=== PATIENT | female | born 1950 | race Caucasian/White ===

== ENCOUNTER 2022-06-23 08:17 | Inpatient (IN) ==
--- NOTE | 2022-06-17 16:15 | EKG ---
[facility] Test Date: 2022-06-17 Pat Name: Marsha Cheatham Department: [facility] Room: Gender: Female Preventive Medicine Specialist: : [id number] Requested By: Micheal Riley Order Number: [id number] Reading MD: Mathew Cole M.D. Measurements Intervals [place] Rate: 64 P: 123 NH: 105 QRS: 44 QRSD: 94 T: 21 QT: 422 QTc: 435 Interpretive Statements Sinus rhythm Short NH interval Electronically Signed On 06-17-2022 16:14:58 PST by Mathew Cole M.D. /[email or web address]/[id number]
[2022-06-17 17:05] LABS: INR 2.6 (0.9-1.1); Partial Thromboplastin Time 41.8 sec (20.0-37.0); Prothrombin Time 28.4 sec (11.9-14.5)
[2022-06-17 17:06] LABS: Appearance,Urine CLEAR (Clear); Bilirubin,Urine NEGATIVE (Negative); Color,Urine LT. YELLOW; Culture Indicated,Urine No; Glucose,Urine (UA) NEGATIVE (Negative); Ketones,Urine NEGATIVE (Negative); Leukocyte Esterase,Urine NEGATIVE /uL (Negative); Nitrate,Urine NEGATIVE (Negative); Protein,Urine NEGATIVE (Negative); Urine Blood NEGATIVE ery/mcL (Negative); Urobilinogen,Urine Normal
[2022-06-17 17:14] LABS: Basophils # (Auto) 0.02 K/mcL (0.00-0.30); Basophils % (Auto) 0.4 % (0.0-2.0); Eosinophils # (Auto) 0.01 K/mcL (0.00-0.70); Eosinophils % (Auto) 0.2 % (0.0-7.0); Hematocrit 41.1 % (34.1-44.9); Hemoglobin 13.3 g/dL (11.2-15.7); Lymphocytes # (Auto) 1.55 K/mcL (1.50-4.80); Lymphocytes % (Auto) 30.9 % (15.5-49.0); Mean Cell Volume 105.1 fL (80.0-100.0); Mean Corpuscular HGB Conc 32.4 g/dL (31.0-36.0); Mean Platelet Volume 10.9 fL (8.8-12.5); Monocytes # (Auto) 0.41 K/mcL (0.10-0.90); Monocytes % (Auto) 8.2 % (1.0-12.0); Neutrophils % (Auto) 60.1 % (38.0-78.0); Platelet Count 211 K/mcL (140-440); RBC 3.91 M/mcL (3.59-5.38); Red Cell Distribution Width 12.7 % (11.5-14.5)
[2022-06-17 17:36] LABS: Blood Urea Nitrogen 16 mg/dL (8-23); Calcium 9.7 mg/dL (8.6-10.4); Carbon Dioxide 31 mmol/L (22-30); Chloride 100 mmol/L (96-108); Glomerular Filtration Rate 74; Glucose 80 mg/dL (70-105)
[~2022-06-23 08:17] MED LIST: 0.9 % SODIUM CHLORIDE 9 ML, KETOROLAC 30 MG, ROPIVACAINE HCL/PF 49.5 ML, EPINEPHrine 0.... IJ SCH; ACETAMINOPHEN 500 MG TABLET PO SCH; CELECOXIB 200 MG CAPSULE PO SCH; PREGABALIN 75 MG CAPSULE PO SCH; ceFAZolin 2 GM in DEXTROSE 5% IN WATER 50 ML IV SCH; oxyCODONE 10 MG TAB.ER.12H PO SCH
[2022-06-23] MEDS ORDERED: IOPAMIDOL 100 ML BOTTLE IV ONE (08:18)
[2022-06-23] MEDS ORDERED: MIDAZOLAM 2 MG/2 ML VIAL ONE (10:06)
[2022-06-23] MEDS ORDERED: BUPIVACAINE W/EPI 0.5% 50 ML VIAL IJ ONE (10:06)
[2022-06-23] MEDS ORDERED: BUPRENORPHINE HCL 0.3 MG/ML ML ONE (10:06)
[2022-06-23] MEDS ORDERED: DEXAMETHASONE 10 MG/ML VIAL ONE (10:06)
[2022-06-23] MEDS ORDERED: TRANEXAMIC ACID 1,000 MG/10 ML VIAL ONE (10:06)
[2022-06-23] MEDS ORDERED: PROPOFOL 200 MG/20 ML VIAL IV ONE (10:06)
[2022-06-23] MEDS ORDERED: LIDOCAINE HCL/PF 100 MG/5 ML SYRINGE IV ONE (10:06)
[2022-06-23] MEDS ORDERED: GLYCOPYRROLATE 0.2 MG/ML VIAL IV ONE (10:06)
[2022-06-23] MEDS ORDERED: PHENYLephrine 1 MG/10 ML SYRINGE (ANEST) ONE (10:06)
[2022-06-23] MEDS ORDERED: ePHEDrine 50 MG/5 ML SYRINGE (ANEST) IV ONE (10:06)
[2022-06-23 10:24] LABS: POC INR 1.3 (0.8-1.2); POC Pro Time 15.4 (11.9-14.5)
[2022-06-23] MEDS ORDERED: MEPERIDINE 25 MG/ML VIAL IV PRN (10:43)
[2022-06-23] MEDS ORDERED: IPRATROPIUM/ALBUTEROL 3 ML AMPUL.NEB NEB PRN (10:43)
[2022-06-23] MEDS ORDERED: ONDANSETRON 4 MG/2 ML VIAL IV PRN ×2 (10:43→11:22)
[2022-06-23] MEDS ORDERED: fentaNYL 100 MCG/2 ML VIAL IV PRN (10:43)
[2022-06-23] MEDS ORDERED: ACETAMINOPHEN 325 MG TABLET PO PRN ×2 (11:22→15:00)
[2022-06-23] MEDS ORDERED: BISACODYL 10 MG SUPP.RECT PR PRN (11:22)
[2022-06-23] MEDS ORDERED: TEMAZEPAM 15 MG CAPSULE PO PRN (11:22)
[2022-06-23] MEDS ORDERED: MAGNESIUM HYDROXIDE 30 ML ORAL.SUSP PO PRN (11:22)
[2022-06-23] MEDS ORDERED: FLEETS ADULT ENEMA PR PRN (11:22)
[2022-06-23] MEDS ORDERED: HYDROmorphone 1 MG/ML SYRINGE IV PRN (11:22)
[2022-06-23] MEDS ORDERED: POLYETHYLENE GLYCOL 3350 17 GM PACKET PO PRN (11:22)
[2022-06-23] MEDS ORDERED: TRANEXAMIC ACID 1,000 MG/10 ML VIAL IV ONE (11:22)
--- NOTE | 2022-06-23 11:22 | Brief Operative Note ---
Brief Operative Note Date of procedure: 06/23/22 Pre-op diagnosis: right knee djd Post-op diagnosis: same Procedure: right tka Grafts/Implants: Yes Anesthesia: GETA Findings: severe djd Complications: none Surgeon: Kwan Barkley Drying Rack Changer: Chevy Wolf Estimated blood loss (cc): 40 Tourniquet Time (Minutes): 41 Specimens Removed/Pathology: none sent Condition: stable Disposition: PACU
--- NOTE | 2022-06-23 11:36 | Discharge Plan ---
Discharge Instructions - TKA Patient Instructions Total Knee Protocol: For Total Knee: Start ROM LAKESHA with stationary bike or rocking chair. Work on gaining full extension of knee. Posterior dislocation precautions provided. Hip abductor strengthening and gait training instructions provided. Apply Cryocuff as instructed. Additional Dressing Instructions: Leave Zip line closure patch intact until followup --May shower at anytime. Discharge Plan Patient/Caregiver Discharge Instructions Activity: ambulate only with your walker and as per physical therapy Diet: Regular Diet Prescriptions: New docusate sodium 100 mg capsule 100 mg PO BID Qty: 60 0RF hydrocodone-acetaminophen 10-325 mg tablet 1 - 2 tab PO Q4H PRN (Reason: pain) Qty: 75 0RF aspirin [Ecotrin Low Strength] 81 mg tablet,delayed release (DR/EC) 81 mg PO BID Qty: 60 0RF No Action hydroxychloroquine 200 mg tablet 200 mg PO BID warfarin 5 mg tablet 0 mg PO QDAY Rx Instructions: 7.5mg on mwf, 5mg all other days lovastatin 40 mg tablet 40 mg PO HS lisinopril 20 mg tablet 20 mg PO QDAY diltiazem HCl 240 mg capsule,extended release 24hr 240 mg PO QDAY carbamazepine 200 mg tablet extended release 12 hr 200 mg PO BID Rx Instructions: 1 tab by mouth in the morning and 1 tabs at night valacyclovir 1 gram tablet 0 mg PO ONCE PRN (Reason: Cold Sores) Rx Instructions: directions say as directed. previous directions said: 2 tabs by mouth at onset of cold sore, and again 12 hours later Calcium-Plus Tablet 1 tab PO DAILY Rx Instructions: CALCIUM + D ferrous sulfate [iron] 325 mg (65 mg iron) Tablet 325 mg PO QDAY vitamin B complex Tablet 1 tab PO QDAY vitamin E 100 unit Tablet,Chewable 180 unit PO DAILY magnesium [magnesium gluconate] 200 mg Tablet 250 mg PO QDAY glucosamine-chondroitin [Osteo Bi-Flex] 250-200 mg Tablet 2 tab PO HS Rx Instructions: give after food/meal omega 0-sjy-iza-fish oil [Fish Oil] 1,000 mg (120 mg-180 mg) Capsule 1 cap PO QDAY Tart Holcomb Extract 1,000 mg Capsule 1,200 mg PO QAM cholecalciferol (vitamin D3) 50 mcg (2,000 unit) Tablet,Chewable 50 mcg PO QDAY turmeric 400 mg Capsule 400 mg PO DAILY Other Ambulatory Orders: Physical Therapy DC - TKA (Routine) Location: None Selected Ordered By: Chevy Wolf Toilet Riser Discharge Order (ONCE) Location: None Selected Ordered By: Chevy Wolf Walker (ONCE) Location: None Selected Ordered By: Chevy Wolf Follow Up Plan Follow up with: Kwan Barkley MD [Physician] - 07/08/22 10:40 am Chevy Wolf PA-C [Physician Counselor Marriage And Family] - Patient Disposition: Home, Self-Care Prognosis: Good Rehab Potential: Good I certify that the patient requires SNF services: No Overall status at discharge: patient is progressing back to baseline Discharge Orders: Discharge Order (Routine); Ordered 06/24/22 Ordered By: Chevy Wolf
[2022-06-23] MEDS ORDERED: valACYclovir 1,000 MG TABLET PO PRN (11:42)
--- NOTE | 2022-06-23 13:03 | XRay Report ---
CLINICAL INFORMATION: Post-Op Total Knee COMPARISON: None. FINDINGS: Total knee prostheses is anatomically aligned. No osseous abnormalities. Periarticular soft tissue swelling seen as expected. IMPRESSION: Knee prostheses in anatomic alignment Interpreted and Authenticated by: Mathew Mccoy 06/23/22
--- NOTE | 2022-06-23 15:01 | Operative Note ---
DATE OF OPERATION: 06/23/2022 PREOPERATIVE DIAGNOSIS: Right knee degenerative arthritis. POSTOPERATIVE DIAGNOSIS: Right knee degenerative arthritis. PROCEDURE: Right total knee arthroplasty. SURGEON: Kwan Barkley M.D. WOOD HEEL FINISHER: Chevy Wolf PA-C. The PA's assistance was required for the safe and efficient completion of the entire case. This provider's expertise and technical skill were required throughout the case. The PA assisted with preoperative coordination, intraoperative retraction, wound closure, dressing and splint application, as well as postoperative documentation and care coordination. IMPLANTS: [place] components. ANESTHESIA: General endotracheal anesthesia. FINDINGS: Severe arthritis. COMPLICATIONS: None. ESTIMATED BLOOD LOSS: 40 mL. TOURNIQUET TIME: 41 minutes. SPECIMENS SENT: None. CONDITION: Stable. DISPOSITION: PACU. DESCRIPTION OF PROCEDURE: The patient was brought to the operating room, put to sleep on the table with general LMA anesthesia. The right leg was sterilely prepped and confirmed as the operative site by initials, consent form, and x-rays. Tourniquet was inflated to 250 pounds of pressure. We made a midline incision, midvastus approach was performed. This showed severe arthritis. We then placed two arrays above the tibial tubercle and two mid tibia. We registered center of hip rotation, registered medial and lateral malleoli, registered forty points on the femur and tibia, and then balanced the knee at 15 and 90 degrees of flexion. Because of the poor bone quality, we decided to cement her knee. We brought in the robot and made the bony cuts and removed all spurs. Balancing the knee, we then used the Verasense to help register the pressures throughout the arc of motion. Once the bony cuts had been made, we then placed the trial components. Once we were able to get the patient into acceptable limits on the pressures, we then prepared the patella. It measured 23 mm of total thickness. This was cut to 13 mm and we placed a 29 mm oval patella. This was a cementless patella. It was cemented into place as well as the tibia and the femoral component. Any excess cement was removed. We then used a deep dish poly. The thickness, I believe, was 13. Please refer to nurse's note. We deflated the tourniquet at 41 minutes. Blood loss was about 40 mL. There was no complication. We controlled any bleeding. The pin sites were removed, both medial epicondyle area and the checkpoint, medial mid tibia arrays were removed with checkpoints all accounted for. After these had been removed, we then took the knee through the range of motion after the cement had dried, checking for any impingement. We had removed any posterior spurs and balanced the knee perfectly. The Verasense was used to help balance the soft tissues. She was a varus malaligned knee, and with this we were able to then slightly release the spurs as well as some of the soft tissue medially and perfectly balance the knee throughout the full arc of motion within the acceptable 30 to 40 mmHg pressure, symmetric bilaterally with good excursion. There was no liftoff of the components. The components were finally cemented into place. Any excess cement was removed. We kept the knee at 45 degrees until the cement was removed and then took it back through the arc of motion to test the ligaments and the tracking of the patella. Midvastus approach was closed after thorough irrigation and then skin was closed with Stratafix and adhesive closure. The patient tolerated this well without complication. RBH:ko Job ID: [id number] Doc ID: [id number] Kwan Barkley MD
[2022-06-23] MEDS: 0.9 % SODIUM CHLORIDE 10 ML SYRINGE IV SCH ×2 (18:43→20:00)
[2022-06-23] MEDS: WARFARIN 7.5 MG TABLET PO SCH (18:45)
[2022-06-23] MEDS: ceFAZolin 1 GM VIAL IV SCH (18:55)
[2022-06-23] MEDS: 0.45 % SODIUM CHLORIDE 1,000 ML IV SCH ×2 (18:55→20:37)
[2022-06-23] MEDS: ASPIRIN 81 MG TAB.CHEW PO SCH (20:35)
[2022-06-23] MEDS: SENNOSIDES 1 TABLET PO SCH (20:36)
[2022-06-23] MEDS: HYDROXYCHLOROQUINE 200 MG TABLET PO SCH (20:36)
[2022-06-23] MEDS: carBAMazepine 200 MG TAB.SR.12H PO SCH (20:36)
[2022-06-23] MEDS: DOCUSATE SODIUM 100 MG CAPSULE PO SCH (20:36)
[2022-06-23] MEDS: GLUCOSAMINE/CHONDROITIN SULF A 1 CAP CAPSULE PO SCH (20:36)
[2022-06-23] MEDS: HYDROcodone/APAP 10/325MG TABLET PO PRN (22:07)
[2022-06-24] MEDS: 0.45 % SODIUM CHLORIDE 1,000 ML IV SCH ×2 (00:16→11:18)
[2022-06-24] MEDS: ceFAZolin 1 GM VIAL IV SCH (02:06)
--- NOTE | 2022-06-24 02:18 | XRay Report ---
CLINICAL INFORMATION: Shortness of breath and cough COMPARISON: None. TECHNIQUE: Portable FINDINGS: The heart is mildly enlarged. Mediastinum and pulmonary vessels are normal. Small consolidated infiltrate is seen in the left medial base (retrocardiac region). Minor right basilar atelectasis noted. No effusion. IMPRESSION: Small consolidated infiltrate left medial base Interpreted and Authenticated by: Mathew Mccoy 06/24/22
[2022-06-24] MEDS: 0.9 % SODIUM CHLORIDE 10 ML SYRINGE IV SCH ×3 (04:15→21:16)
[2022-06-24 07:16] LABS: INR 1.1 (0.9-1.1); Prothrombin Time 14.1 sec (11.9-14.5)
--- NOTE | 2022-06-24 07:43 | Orthopedic Progress Note ---
SUBJECTIVE Subjective Patient information: Note initiated : 06/24/22 at 7:41 am Service Date, if different from initiated Date: [] Patient: SeptemberMarsha a 72 y/o F admitted on for Right Total Knee Arthroplasty . Chief Complaint: [Pt is stable this morning on post operative day without any significant concerns or complaints. Patients vital signs have remained stable. Patients dressing is dry and is grossly intact from a neurovascular and motor standpoint. Patients 10 point ROS is otherwise negative. ] Constitutional Vitals: Vital Signs Temp Pulse Resp BP Pulse Ox O2 Del Method O2 Flow Rate 98.3 F 98 H 18 138/81 100 Nasal Cannula 2 06/24/22 07:18 06/24/22 07:18 06/24/22 07:18 06/24/22 07:18 06/24/22 07:18 06/24/22 07:18 06/24/22 07:18 Period Temp Pulse Resp BP Sys/White Pulse Ox O2 Del Method O2 Flow Rate Last 24 Hr 97 F-98.8 F 66-98 13-22 100-156/53-81 90-100 Nasal Cannula- Simple Mask 2-6 Intake and Output 06/23/22 06/24/22 06/24/22 19:59 03:59 11:59 Intake Total 400 1200 Output Total 2100 1000 Balance -1700 1200 -1000 Weight 134 lb 4.8 oz Intake & Output: Intake & Output 06/23/22 06/24/22 06/24/22 19:59 03:59 11:59 Intake Total 400 1200 Output Total 2100 1000 Balance -1700 1200 -1000 Weight 134 lb 4.8 oz Intake: IV 1000 Sodium Chloride 0.45% 1,000 ml 1000 @ 100 mls/hr IV .Q10H [facility] Rx#: [id number] Oral 200 IV - Manual Only 400 Output: Urine Catheter Amount 2100 1000 Straight 600 1000 Other: Meal Dinner Percent of Meal Consumed 50% Feeding Ability Assist with Tray Set Up Urine Appearance Clear Straight Clear Urine Color Yellow Straight Yellow Urine Odor Normal Straight Normal Extremities Exam Extremities exam: Present normal capillary refill, normal inspection, Foot pink and warm and neurovascular intact OBJ DATA Labs 06/24/22 05:30 06/17/22 14:26 Labs: Abnormal Lab Results 06/24/22 06/23/22 05:30 09:04 Hct 32.9 L POC PT 15.4 H POC INR 1.3 H Meds: Medications Acetaminophen (Acetaminophen 325 Mg Tablet) 650 mg PO Q6HP PRN; Protocol PRN Reason: Per Pain Protocol/Fever > 101 Hydrocodone Bitart/Acetaminophen (Hydrocodone/Apap 10/325mg Tablet) 1 - 2 tab PO Q4HP PRN; Protocol PRN Reason: Per Pain Protocol Last Admin: 06/23/22 22:07 Dose: 1 tab Aspirin (Aspirin 81 Mg Tab.Chew) 81 mg PO BID [facility] Last Admin: 06/23/22 20:35 Dose: 81 mg Bisacodyl (Bisacodyl 10 Mg Supp.Rect) 10 mg MT Q2-3DAYS PRN PRN Reason: Constipation Carbamazepine (Carbamazepine 200 Mg Tab.Sr.12h) 200 mg PO BID [facility] Last Admin: 06/23/22 20:36 Dose: 200 mg Diltiazem HCl (Diltiazem 240 Mg Cap.Xl.24h) 240 mg PO QDAY [facility] Docusate Sodium (Docusate Sodium 100 Mg Capsule) 100 mg PO BID [facility] Last Admin: 06/23/22 20:36 Dose: 100 mg Fish Oil (Fish Oil 1,000 Mg Capsule) 1,000 mg PO QDAY [facility] Glucosamine/Chondroitin (Glucosamine/Chondroitin Sulf A 1 Cap Capsule) 2 cap PO [facility] Last Admin: 06/23/22 20:36 Dose: Not Given Hydromorphone HCl (Hydromorphone 1 Mg/Ml Syringe) 0.5 - 2 mg IV Q2HP PRN; Protocol PRN Reason: Per Pain Protocol Hydroxychloroquine Sulfate (Hydroxychloroquine 200 Mg Tablet) 200 mg PO BID [facility] Last Admin: 06/23/22 20:36 Dose: 200 mg Sodium Chloride (Sodium Chloride 0.45%) 1,000 mls @ 100 mls/hr IV .Q10H [facility] Last Admin: 06/24/22 00:16 Dose: 100 mls/hr Lisinopril (Lisinopril 20 Mg Tablet) 20 mg PO QDAY [facility] Magnesium Hydroxide (Magnesium Hydroxide 30 Ml Oral.Susp) 30 ml PO BIDP PRN PRN Reason: Constipation Magnesium Oxide (Magnesium Oxide 400 Mg Tablet) 200 mg PO QDAY [facility] Ondansetron HCl (Ondansetron 4 Mg/2 Ml Vial) 4 mg IV Q4HP PRN PRN Reason: Nausea And Vomiting Lovastatin 40 Mg (Tablet) 1 dose PO HS [facility] Last Admin: 06/23/22 20:36 Dose: Not Given Polyethylene Glycol (Polyethylene Glycol 3350 17 Gm Packet) 17 gm PO DAILYP PRN PRN Reason: Constipation Senna (Sennosides 1 Tablet) 2 tab PO [facility] Last Admin: 06/23/22 20:36 Dose: 2 tab Sodium Biphosphate/Sodium Phosphate (Fleets Adult Enema) 1 dose MT Q3-4DAYS PRN PRN Reason: Constipation Sodium Chloride (0.9 % Sodium Chloride 10 Ml Syringe) 10 ml IV Q8 [facility] Last Admin: 06/24/22 04:15 Dose: Not Given Temazepam (Temazepam 15 Mg Capsule) 15 mg PO HSP PRN PRN Reason: Insomnia Valacyclovir HCl (Valacyclovir 1,000 Mg Tablet) 1,000 mg PO ONCE PRN PRN Reason: HERPES Vitamin B Complex (Vitamin B Complex 1 Capsule) 1 cap PO QDAY [facility] Vitamin D (Vitamin D3 25 Mcg Tablet) 50 mcg PO QDAY [facility] Warfarin Sodium (Warfarin 5 Mg Tablet) 5 mg PO SuTuThSa [facility] Warfarin Sodium (Warfarin 7.5 Mg Tablet) 7.5 mg PO [id number] [facility] Last Admin: 06/23/22 18:45 Dose: Not Given A/P Narrative A/P Narrative: The patient has been educated regarding dressing care, , restrictions, and follow up appointments. The patient has had all necessary DME prescribed. The patient has remained relatively stable during their hospital course. Time Spent With Patient Time: Total time spent is greater than 50% in coordination of care (as documented) at patient's floor/unit and/or counseling patient: Initial: Total time with patient: Less than 40 minutes Subsequent: Total time with patient: Less than 25 minutes Critical Care Time: No
[2022-06-24] MEDS ORDERED: [UNRECOGNIZED DRUG - OTHER] PO SCH (09:00)
[2022-06-24] MEDS ORDERED: [UNRECOGNIZED DRUG - OTHER] PO SCH (09:00)
[2022-06-24] MEDS ORDERED: NON FORMULARY MEDICATION 1 DOSE MISCELL (Turmeric 400 mg Capsule) PO SCH (09:00)
[2022-06-24] MEDS ORDERED: VITAMIN E 100 UNIT PO SCH (09:00)
--- NOTE | 2022-06-24 09:47 | Magnetic Resonance Report ---
CLINICAL INFORMATION: Acute decreased mental status question CVA COMPARISON: Head CT without contrast 06/24/2022 TECHNIQUE:Sagittal T1 FLAIR, axial T1 FLAIR, T2 FLAIR propeller, T2 propeller, gradient, diffusion, ADC and coronal T2 weighted images were acquired. FINDINGS: The ventricles, sulci, fissures and cisterns are symmetrically enlarged compatible moderate age-related atrophy. No extra-axial fluid collections or mass appreciated. 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 A 7 mm remote lacunar infarct is seen just anteriorly in the deep left frontal white matter. The right side, a 10 mm remote lacunar infarct is present in the right external capsule and right lentiform nucleus. Moderate patchy chronic ischemic changes in the deep cerebral white matter are expected for age. There are no regions of restricted diffusion to suggest acute infarct. There is no hemorrhage mass effect or other acute findings. IMPRESSION: No evidence of acute infarct, hemorrhage or other acute finding Moderate atrophy and chronic ischemic changes in the cerebral white matter. Large remote lacunar infarcts in the deep left frontal white matter and right basal ganglia. Interpreted and Authenticated by: Mathew Mccoy 06/24/22
--- NOTE | 2022-06-24 10:27 | Cat Scan Report ---
CLINICAL INFORMATION: Right-sided weakness COMPARISON: None. TECHNIQUE: 80 cc of Isovue-370 were injected intravenously , and using SmartPrep to maximize cerebral arterial opacification, 0.625 mm helical slices were obtained from the skull base through the cerebral vertex. Following reconstruction , sagittal, coronal and axial reformatted images were processed and reviewed at multiple windows and levels. 3D volume rendered and MIP images were acquired at a independent workstation. The exam was performed using radiation dose optimization techniques including, but not limited to, automated exposure control, adjustment of the mA and/or kV according to patient size and use of iterative reconstruction technique. FINDINGS: Is moderate focal calcific plaque within the intracranial left vertebral artery resulting in a stenosis estimated to be last than 50%. Diminutive right vertebral artery noted. Moderate calcific plaque in the cavernous portions of both intracranial internal carotid arteries this does not appear to be resulting in significant stenoses The remaining intracranial internal carotid, basilar, anterior, middle and posterior cerebral arteries and their branches are well-opacified and normal in contour and caliber without significant stenosis, occlusion or other pathology. 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 Interpreted and Authenticated by: Mathew Mccoy 06/24/22
[2022-06-24] MEDS: ASPIRIN 81 MG TAB.CHEW PO SCH (11:10)
[2022-06-24] MEDS: DILTIAZEM 240 MG CAP.XL.24H PO SCH (11:11)
[2022-06-24] MEDS: LISINOPRIL 20 MG TABLET PO SCH (11:11)
[2022-06-24] MEDS: DOCUSATE SODIUM 100 MG CAPSULE PO SCH ×2 (11:12→21:08)
[2022-06-24] MEDS: carBAMazepine 200 MG TAB.SR.12H PO SCH ×2 (11:13→21:13)
[2022-06-24] MEDS: HYDROXYCHLOROQUINE 200 MG TABLET PO SCH ×2 (11:16→21:09)
[2022-06-24] MEDS: FISH OIL 1,000 MG CAPSULE PO SCH (11:18)
[2022-06-24] MEDS: MAGNESIUM OXIDE 400 MG TABLET PO SCH (11:18)
[2022-06-24] MEDS: VITAMIN D3 25 MCG TABLET PO SCH (11:19)
[2022-06-24] MEDS: VITAMIN B COMPLEX 1 CAPSULE PO SCH (11:19)
--- NOTE | 2022-06-24 11:55 | Internal Medicine Consult Note ---
HPI Date of Consult Consult Date: 06/24/22 Primary Care Provider: Edwin Lara DO Consult Narrative Chief complaint: Right knee degenerative arthritis Reason for consult: Altered mental status postop History of present illness: 72-year-old female with a past medical history significant for epilepsy, and prior CVA status post right hemiplegia was admitted to the hospital for an elective right knee arthroplasty. Postoperatively, there was concerns for difficulty swallowing, and confusion. She was not noted to have focal neurological deficits. Orthopedic surgery were concerned given her neurological history and recommended hospitalist consult for further evaluation. From my understanding, the patient was quite confused. Family arrived shortly after and states that she does have a history of waxing and waning mental status. When I evaluated the patient later this morning, she had returned to her baseline and the RN was present at the bedside stating that she is looking much better. cc:: CC: Kwan Barkley Review of Systems All systems: reviewed and no additional remarkable complaints except as stated Constitutional Constitutional: Present as per HPI EENT Eyes: Present as per HPI; Absent blurry vision Cardiovascular Cardiovascular: Present as per HPI; Absent chest pain, dyspnea, dyspnea on exertion, leg edema or palpatations Respiratory Respiratory: Present as per HPI; Absent cough, dyspnea, dyspnea on exertion, wheezing or stridor Gastrointestinal Gastrointestinal: Present as per HPI; Absent abdominal pain, diarrhea, dysphagia, hematemesis, melena, nausea or vomiting Musculoskeletal Musculoskeletal: Present as per HPI; Absent joint swelling, limited range of motion, muscle cramps, muscle weakness or myalgias Integumentary Integumentary: Present as per HPI; Absent erythema, new lesions, rash or wounds Neurological Neurological: Present as per HPI; Absent abnormal gait, behavioral changes, focal weakness, headache(s), loss of vision, numbness, sensory deficit or syncope Endocrine Endocrine: Absent change in body appearance, fatigue or heat intolerance Hematologic/Lymphatic Hematologic/Lymphatic: Present as per HPI PFSH PFSH All Active Problems Encounter for long-term (current) use of high-risk medication (Acute) H/O tubal ligation (Chronic) History of tonsillectomy and adenoidectomy (Chronic ~1969) Herpes simplex (Chronic) Seizure disorder (Chronic) Hypertension (Chronic) Cerebrovascular accident (CVA) with right hemiparesis (Chronic ~02/03/04) Anemia, macrocytic (Chronic) Lupus (Acute) Medical History Anemia, macrocytic Cerebrovascular accident (CVA) with right hemiparesis (~02/03/04) Encounter for long-term (current) use of high-risk medication Herpes simplex Hypertension Lupus Seizure disorder Surgical History H/O tubal ligation History of tonsillectomy and adenoidectomy (~1969) Family History Unknown No problems noted. Family/Other Spina bifida at Social History occupational status: retired physical activity: other details: Stationary Bike smoking status: Former smoker quit date: 06/01/89 pack-years: 40 alcohol intake frequency: former alcohol drinker MEDS/ALLERGIES Home Medications and Allergies Home Medications Medication Instructions Recorded Confirmed Type carbamazepine 200 mg 200 mg PO BID 02/09/20 06/23/22 History tablet,extended release,12 hr diltiazem HCl 240 mg 240 mg PO QDAY 02/09/20 06/23/22 History capsule,extended release 24 hr hydroxychloroquine 200 mg tablet 200 mg PO BID 02/09/20 06/23/22 History lisinopril 20 mg tablet 20 mg PO QDAY 02/09/20 06/23/22 History lovastatin 40 mg tablet 40 mg PO HS 02/09/20 06/23/22 History valacyclovir 1 gram tablet 0 mg PO ONCE PRN Cold Sores 02/09/20 06/23/22 History warfarin 5 mg tablet 0 mg PO QDAY 02/09/20 06/23/22 History calcium-vitamin D2-iron tablet 1 tab PO DAILY 06/17/22 06/23/22 History cholecalciferol (vitamin D3) 50 50 mcg PO QDAY 06/17/22 06/23/22 History mcg (2,000 unit) chewable tablet ferrous sulfate 325 mg (65 mg 325 mg PO QDAY 06/17/22 06/23/22 History iron) tablet (iron) glucosamine-chondroitin 250 mg-200 2 tab PO HS 06/17/22 06/23/22 History mg tablet (Osteo Bi-Flex) magnesium 200 mg tablet 250 mg PO QDAY 06/17/22 06/23/22 History omega 4-juv-uab-fish oil 1,000 mg 1 cap PO QDAY 06/17/22 06/23/22 History (120 mg-180 mg) capsule (Fish Oil) sour holcomb extract 1,000 mg 1,200 mg PO QAM 06/17/22 06/23/22 History capsule (Tart Holcomb Extract) turmeric 400 mg capsule 400 mg PO DAILY 06/17/22 06/23/22 History vitamin B complex 1 tab PO QDAY 06/17/22 06/23/22 History vitamin E 100 unit chewable tablet 180 unit PO DAILY 06/17/22 06/23/22 History aspirin 81 mg tablet,delayed 81 mg PO BID #60 tabs 06/23/22 Rx release (Ecotrin Low Strength) docusate sodium 100 mg capsule 100 mg PO BID #60 caps 06/23/22 Rx hydrocodone 10 mg-acetaminophen 1 - 2 tab PO Q4H PRN pain #75 tabs 06/23/22 Rx 325 mg tablet Allergies Allergy/AdvReac Type Severity Reaction Status Date / Time Penicillins Allergy Intermediate Rash Verified 06/17/22 14:13 simvastatin Allergy Intermediate Rash Verified 06/17/22 14:13 EXAM Constitutional Vitals: Temp Pulse Resp BP Pulse Ox O2 Del Method O2 Flow Rate 98.3 F 98 H 18 138/81 100 Nasal Cannula 2 06/24/22 07:18 06/24/22 07:18 06/24/22 07:18 06/24/22 07:18 06/24/22 07:18 06/24/22 07:18 06/24/22 07:18 General appearance: average body habitus Head Head exam: Present atraumatic, normal inspection and normocephalic Eye Eye exam: Present EOMI, normal appearance and PERRL; Absent conjunctival injection ENT ENT exam: Present normal exam; Absent mucous membranes dry Neck Neck exam: Present full ROM; Absent lymphadenopathy Respiratory Respiratory exam: Present normal respiratory exam and CTAB; Absent decreased breath sounds, respiratory distress or wheezes Cardiovascular Cardiovascular exam: Present normal rate and rhythm and RRR; Absent JVD GI/Abdominal GI/Abdominal exam: Present normal bowel sounds and soft; Absent diminished bowel sounds, distended, guarding, mass, rebound or tenderness Neurological Exam Neurological exam: Present alert and oriented X3 Additional comments: Right hemiplegia with right upper extremity contracture Psychiatric Psychiatric exam: Present normal affect and normal mood Skin Skin exam: Present intact and warm; Absent erythema, pallor, petechiae or rash DATA Data Completed and Pending Labs: Labs from last 24 hours 06/24/22 06/24/22 05:30 05:30 Hct 32.9 L PT 14.1 INR 1.1 A/P Assessment and plan (1) Seizure disorder: Status: Chronic (2) Cerebrovascular accident (CVA) with right hemiparesis: Status: Chronic Sepsis Sepsis Identified: No Narrative A/P Narrative: #Acute CVA r/o -The patient likely had altered sensorium s/p anesthesia, as she returned to [facility] rather quickly, and no new focal deficits were noted -DDx: seizure vs hypotension vs hypoglycemia vs acute infarct -Investigations: CTA head and neck, MRI brain -Tx: continue ASA/statin as there is significant plaque in the L vertebral artery (50% occlusion). 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 -Monitor neuro checks -Will benefit from f/u from her primary neurologist Thank you for allowing me to participate in the care of this patient. I will continue to follow. Do not hesitate to call with any questions or concerns. Time Spent With Patient Time: Total time spent is greater than 50% in coordination of care (as documented) at patient's floor/unit and/or counseling patient: Initial: Total time with patient: 55 - 74 minutes
--- NOTE | 2022-06-24 13:27 | Cat Scan Report ---
CLINICAL INFORMATION: Decreased mental status right-sided weakness COMPARISON: None. TECHNIQUE: 80 cc of Isovue-300 were injected intravenously followed by 40 cc of normal saline flush. Using SmartPrep, 0.625 helical slices were obtained from the thoracic aortic arch through the pamunkey of [place]. Following reconstruction, 2.5 mm sagittal, coronal and axial reformatted images were processed. MIPS , 3-D volume rendering and CPR images were also constructed. The exam was performed using radiation dose optimization techniques including, but not limited to, automated exposure control, adjustment of the mA and/or kV according to patient size and use of iterative reconstruction technique. FINDINGS: The thoracic aortic arch is normal diameter with minimal intimal thickening and conventional aortic branching. There is moderate calcific plaque in the left subclavian artery and left common carotid origin only in stenoses less than 50%. The brachiocephalic, right common carotid right subclavian arteries are patent. There is moderate calcific plaque in the wall of the proximal right internal carotid artery resulting in mild (less than 50%) stenoses. Minimal scattered calcific plaque seen in the proximal left internal carotid artery. Both vertebral arteries are widely patent-left vertebral artery dominance noted. A large multinodular adenomatous thyroid goiter appreciated-thyroid spans 7 cm in length. IMPRESSION: Calcific plaque in the left subclavian and left common carotid artery origins result in mild-less than 50% stenoses. Moderate calcific plaque in the proximal right internal carotid carotid artery results in mild less 50% stenoses. Interpreted and Authenticated by: Mathew Mccoy 06/24/22
[2022-06-24] MEDS ORDERED: WARFARIN 5 MG TABLET PO SCH (14:00)
[2022-06-24] MEDS: GLUCOSAMINE/CHONDROITIN SULF A 1 CAP CAPSULE PO SCH (21:08)
[2022-06-24] MEDS: SENNOSIDES 1 TABLET PO SCH (21:08)
[2022-06-24] MEDS: HYDROcodone/APAP 10/325MG TABLET PO PRN (21:08)
[2022-06-25] MEDS: 0.9 % SODIUM CHLORIDE 10 ML SYRINGE IV SCH ×3 (05:11→20:33)
[2022-06-25 06:27] LABS: INR 1.1 (0.9-1.1); Prothrombin Time 14.4 sec (11.9-14.5)
[2022-06-25] MEDS: carBAMazepine 200 MG TAB.SR.12H PO SCH ×2 (09:44→20:32)
[2022-06-25] MEDS: MAGNESIUM OXIDE 400 MG TABLET PO SCH (09:45)
[2022-06-25] MEDS: FISH OIL 1,000 MG CAPSULE PO SCH (09:45)
[2022-06-25] MEDS: VITAMIN B COMPLEX 1 CAPSULE PO SCH (09:46)
[2022-06-25] MEDS: DOCUSATE SODIUM 100 MG CAPSULE PO SCH ×2 (09:46→20:28)
[2022-06-25] MEDS: LISINOPRIL 20 MG TABLET PO SCH (09:46)
[2022-06-25] MEDS: DILTIAZEM 240 MG CAP.XL.24H PO SCH (09:46)
[2022-06-25] MEDS: VITAMIN D3 25 MCG TABLET PO SCH (09:46)
[2022-06-25] MEDS: HYDROXYCHLOROQUINE 200 MG TABLET PO SCH ×2 (09:47→20:30)
[2022-06-25] MEDS ORDERED: FLU VACC QS2022-23(6MOS UP)/PF 60 MCG/0.5 ML SYRINGE IM ONE (11:00)
[2022-06-25] MEDS: WARFARIN 7.5 MG TABLET PO SCH (14:43)
[2022-06-25] MEDS: SENNOSIDES 1 TABLET PO SCH (20:29)
[2022-06-25] MEDS: GLUCOSAMINE/CHONDROITIN SULF A 1 CAP CAPSULE PO SCH (20:30)
[2022-06-26] MEDS: HYDROcodone/APAP 10/325MG TABLET PO PRN ×2 (01:13→08:24)
[2022-06-26] MEDS: 0.9 % SODIUM CHLORIDE 10 ML SYRINGE IV SCH (05:23)
[2022-06-26 08:15] LABS: INR 1.1 (0.9-1.1); Prothrombin Time 15.1 sec (11.9-14.5)
[2022-06-26] MEDS: LISINOPRIL 20 MG TABLET PO SCH (08:22)
[2022-06-26] MEDS: VITAMIN B COMPLEX 1 CAPSULE PO SCH (08:22)
[2022-06-26] MEDS: DILTIAZEM 240 MG CAP.XL.24H PO SCH (08:22)
[2022-06-26] MEDS: HYDROXYCHLOROQUINE 200 MG TABLET PO SCH (08:23)
[2022-06-26] MEDS: MAGNESIUM OXIDE 400 MG TABLET PO SCH (08:23)
[2022-06-26] MEDS: DOCUSATE SODIUM 100 MG CAPSULE PO SCH (08:23)
[2022-06-26] MEDS: VITAMIN D3 25 MCG TABLET PO SCH (08:25)
[2022-06-26] MEDS: FISH OIL 1,000 MG CAPSULE PO SCH (08:25)
[2022-06-26] MEDS: carBAMazepine 200 MG TAB.SR.12H PO SCH (08:33)
--- NOTE | 2022-06-26 10:17 | Discharge Summary ---
Discharge Provider Provider IMPORTANT FOLLOW-UP INFORMATION FOR PCP: Patient information: Note initiated : 06/26/22 at 10:14 am Service Date, if different from initiated Date: [] Patient: Marsha Cheatham 72 y/o F admitted on 06/24/22 for Right Total Knee Arthroplasty; altered mental . Chief Complaint: [] Date of admission: 06/24/22 16:39 Discharge date: 06/26/22 Primary care physician: Edwin Lara DO Consults: 06/24/22 07:50 Consult to Physician [CONS] Routine Comment: Consulting Provider: Dread Luna Reason For Exam: Physician to Consult 06/25/22 11:00 Consult to Physician [CONS] Routine Comment: snf referral Consulting Provider: [facility] Reason For Exam: Physician to Consult COURSE Hospital Course Hospital course: Chief complaint: Right knee degenerative arthritis Reason for consult: Altered mental status postop History of present illness: 72-year-old female with a past medical history significant for epilepsy, and prior CVA status post right hemiplegia was admitted to the hospital for an elective right knee arthroplasty. Postoperatively, there was concerns for difficulty swallowing, and confusion. She was not noted to have focal neurological deficits. Orthopedic surgery were concerned given her neurological history and recommended hospitalist consult for further evaluation. From my understanding, the patient was quite confused. Family arrived shortly after and states that she does have a history of waxing and waning mental status. When I evaluated the patient later this morning, she had returned to her baseline and the RN was present at the bedside stating that she is looking much better. 06/26: The patient's stroke work-up was negative and this was most likely an after effect of anesthesia in the postoperative period. The patient returned to her baseline rather quickly and there has been no issues for the last 48 hours. Her postoperative course has been otherwise uncomplicated and she will be discharged to snf facility today. Discharge diagnosis: Right knee degenerative arthritis status post arthroplasty Time Spent with Patient Time attestation: Total time spent providing and/or coordinating discharge services: Time spent: Greater than 30 minutes EXAM Constitutional Vitals: Temp Pulse Resp BP Pulse Ox O2 Del Method O2 Flow Rate 98.4 F 92 H 16 130/65 95 Room Air 0 06/26/22 07:53 06/26/22 07:53 06/26/22 07:53 06/26/22 07:53 06/26/22 07:53 06/26/22 07:53 06/26/22 02:15 General appearance: average body habitus Head Head exam: Present atraumatic, normal inspection and normocephalic Eye Eye exam: Present EOMI, normal appearance and PERRL; Absent conjunctival injection ENT ENT exam: Present normal exam; Absent mucous membranes dry Neck Neck exam: Present full ROM; Absent lymphadenopathy Respiratory Respiratory exam: Present normal respiratory exam and CTAB; Absent decreased breath sounds, respiratory distress or wheezes Cardiovascular Cardiovascular exam: Present normal rate and rhythm and RRR; Absent JVD GI/Abdominal GI/Abdominal exam: Present normal bowel sounds and soft; Absent diminished bowel sounds, distended, guarding, mass, rebound or tenderness Neurological Exam Neurological exam: Present alert, CN II-XII intact and oriented X3 Psychiatric Psychiatric exam: Present normal affect and normal mood Skin Skin exam: Present intact and warm; Absent erythema, pallor, petechiae or rash Discharge Data Data Completed and Pending Labs on day of discharge: Labs from last 24 hours 06/26/22 05:11 PT 15.1 H INR 1.1 Discharge Plan Patient/Caregiver Discharge Instructions Activity: ambulate only with your walker and as per physical therapy Diet: Regular Diet Instructions: Knee Replacement (DC) Activity Restrictions/Additional Instructions: Zip Knee Discharge Instructions Do the exercises at home that physical therapy gave you. Start ROM LAKESHA with stationary bike or rocking chair. Work on gaining full extension of knee. Weight bearing as tolerated operative side. Activity as tolerated. Use your ice packs as tolerated throughout the day. The icing of your knee, use of TIESHA wrap, and elevation will help with pain and swelling. You are scheduled to start physical therapy at on . Take your prescription, photo ID, insurance cards, and current medication list with you to your first physical therapy appointment. Wear comfortable clothing for your physical therapy. Consider pre-medicating with pain medication 45 minutes prior to physical therapy appointment. Do not drive while on pain medication. You have the ZipLine dressing (a waterproof dressing) covering your surgical incision. DO NOT remove this dressing. Leave in place until follow-up appt. You may start showering on Thursday, . The Zipline dressing can get wet. Do not scrub dressing. Do not use soaps, creams, or lotions over the dressing. Pat dry. No bathing or soaking in hot tub until released by surgeon. Replace daily with new gauze and secure with TIESHA wrap. Take your prescriptions to [facility] equipment or medications. Your prescriptions are with your discharge information. Some medications were electronically transmitted to your pharmacy of choice. You will be taking Aspirin 81 mg 2 x daily for 30 days to prevent blood clots. To avoid constipation while taking any narcotic pain medication, take an over the counter stool softener/laxative. Please cone picker CPM from [facility] (within 24 hours of discharge). Instructions for use: Start CPM at 40 degree flexion and advance as tolerated to 90 degrees flexion. Use daily as tolerated. If you have any questions or concerns, call your orthopedic surgeon before going to the emergency room. [facility] has an on-call physician 24 hours per day/7 days per week and can be reached at [phone]. Call for fevers above 100.5 or pain not controlled by medication. Prescriptions: New docusate sodium 100 mg capsule 100 mg PO BID Qty: 60 0RF hydrocodone-acetaminophen 10-325 mg tablet 1 - 2 tab PO Q4H PRN (Reason: pain) Qty: 75 0RF No Action hydroxychloroquine 200 mg tablet 200 mg PO BID warfarin 5 mg tablet 0 mg PO QDAY Rx Instructions: 7.5mg on mwf, 5mg all other days lovastatin 40 mg tablet 40 mg PO HS lisinopril 20 mg tablet 20 mg PO QDAY diltiazem HCl 240 mg capsule,extended release 24hr 240 mg PO QDAY carbamazepine 200 mg tablet extended release 12 hr 200 mg PO BID Rx Instructions: 1 tab by mouth in the morning and 1 tabs at night valacyclovir 1 gram tablet 0 mg PO ONCE PRN (Reason: Cold Sores) Rx Instructions: directions say as directed. previous directions said: 2 tabs by mouth at onset of cold sore, and again 12 hours later Calcium-Plus Tablet 1 tab PO DAILY Rx Instructions: CALCIUM + D ferrous sulfate [iron] 325 mg (65 mg iron) Tablet 325 mg PO QDAY vitamin B complex Tablet 1 tab PO QDAY vitamin E 100 unit Tablet,Chewable 180 unit PO DAILY magnesium [magnesium gluconate] 200 mg Tablet 250 mg PO QDAY glucosamine-chondroitin [Osteo Bi-Flex] 250-200 mg Tablet 2 tab PO HS Rx Instructions: give after food/meal omega 2-htb-eub-fish oil [Fish Oil] 1,000 mg (120 mg-180 mg) Capsule 1 cap PO QDAY Tart Holcomb Extract 1,000 mg Capsule 1,200 mg PO QAM cholecalciferol (vitamin D3) 50 mcg (2,000 unit) Tablet,Chewable 50 mcg PO QDAY turmeric 400 mg Capsule 400 mg PO DAILY Other Ambulatory Orders: Physical Therapy DC - TKA (Routine) Location: None Selected Ordered By: Chevy Wolf Toilet Riser Discharge Order (ONCE) Location: None Selected Ordered By: Chevy Wolf Walker (ONCE) Location: None Selected Ordered By: Chevy Wolf Follow Up Plan Follow up with: Kwan Barkley MD [Physician] - 07/08/22 10:40 am Chevy Wolf PA-C [Physician Senior Health Consultant] - Patient Disposition: Xfer SNF Prognosis: Good Rehab Potential: Good I certify that the patient requires SNF services: Yes Overall status at discharge: patient is progressing back to baseline Discharge Orders: Discharge Order (Routine); Ordered 06/24/22 Ordered By: Chevy Wolf QUALITY VTE Deep Vein Thrombosis/Pulmonary Embolism Present on Admission: No
== END 2022-06-26 13:30 | DRG 982 ==
LOC: SUR 08:17 → MEDSUR 13:03
PROVIDERS: ADMIT Student in an Organized Health Care Education/Training Program; ATTEND Student in an Organized Health Care Education/Training Program